=== PATIENT | female | born 1945 | race Caucasian/White ===

== ENCOUNTER 2021-09-01 08:18 | Observation (INO) | payer MEDICARE, MEDICAID ==
[~2021-09-01] VITALS: Ht 175.3 cm; Wt 47.0 kg
[2021-09-01] VITALS (8 sets, daily range): BP systolic 82–125; BP diastolic 40–62
--- NOTE | 2021-09-01 08:39 | NUR ---
PT TO ER PER EMS WITH COMPLAINT OF GENERALIZED NECK AND BACK PAIN FROM ONGOING CHRONIC YEARS AGO.
[2021-09-01] MEDS ORDERED: PREGABALIN50 MG PO (08:41)
[2021-09-01] MEDS ORDERED: CLONAZEPAM1 MG PO (08:42)
[2021-09-01] MEDS ORDERED: MORPHINE SUL30 M3 PO (08:42)
[2021-09-01] MEDS ORDERED: QUETIAPINE FUM100 MG PO (08:42)
[2021-09-01] MEDS ORDERED: HYDROCODONE BIT10 MG PO (08:43)
[2021-09-01] MEDS ORDERED: DIGOXIN0.125 MG PO (08:44)
[2021-09-01] MEDS ORDERED: ASPIRIN 81 LOW81 MG PO (08:44)
[2021-09-01 09:26] LABS: URINE BLOOD DIPSTICK NEGATIVE (NEGATIVE); URINE COLOR YELLOW; URINE GLUCOSE - DIPSTICK NEGATIVE (NEGATIVE); URINE KETONE TRACE mg/dL (NEGATIVE); URINE LEUK ESTERASE TRACE (NEGATIVE); URINE PH 6.5 (4.5-8.0); URINE PROTEIN - DIPSTICK TRACE mg/dL (NEG-TRACE)
[2021-09-01 09:28] LABS: URINE BILIRUBIN - DIPSTICK SMALL (NEGATIVE); URINE NITRITE - DIPSTICK NEGATIVE (Negative)
[2021-09-01 09:47] LABS: HEMATOCRIT 38.7 % (37.0-47.0); HEMOGLOBIN 12.1 g/dl (12.0-16.0); IMMATURE GRANULOCYTES 0.3 % (0.0-5.0); MEAN CELL VOLUME 87.6 fL CALC (80.0-100.0); MEAN CORPUSCULAR HGB 27.4 pG CALC (26.0-32.0); MEAN CORPUSCULAR HGB CONC 31.3 g/dL CAL (32.0-36.0); NEUT# 1.95 thou/uL (2.00-7.15); RED BLOOD COUNT 4.42 mill/uL (4.20-5.60); RED CELL DISTRI WIDTH 17.8 % (11.5-15.5)
--- NOTE | 2021-09-01 09:51 | NUR ---
RECEIVED REPORT FROM SANTA MURCIA
[2021-09-01 09:59] LABS: ALBUMIN 2.3 g/dL (3.2-5.0); ALKALINE PHOSPHATASE 80 u/l (38-126); ANION GAP 7 (6-22 (CALC)); BILIRUBIN, TOTAL 1.1 mg/dL (0.0-1.4); BUN 16 mg/dL (8-23); BUN/CREATININE RATIO 16 (12-20 (CALC)); CARBON DIOXIDE 29 mmol/l (22-30); CHLORIDE 107 mmol/l (95-108); GFR 54 ML/MIN (>=60 (CALC)); GFR FOR AFR.AMER. > 60 ML/MIN (>=60 (CALC)); POTASSIUM 3.8 mmol/l (3.5-5.1); SGOT/AST 42 u/l (9-36); SODIUM 139 mmol/l (137-146); TOTAL PROTEIN 6.2 g/dL (6.3-8.2)
--- NOTE | 2021-09-01 10:35 | NUR ---
DR REECE IN WITH PT TO DISCUSS POC
--- NOTE | 2021-09-01 11:01 | NUR ---
UNSUCCESSFUL PIV ATTEMPT. DR CHEVY LATIF.
--- NOTE | 2021-09-01 12:05 | NUR ---
PT LEAVES DEPT TO HAVE PICC LINE PLACED.
--- NOTE | 2021-09-01 13:05 | NUR ---
PT AWARE OF POC AND TO BE ADMITTED TO MED/SURG. PT AWARE OF LAB RESULTS. PT STABLE AT THIS TIME.
--- NOTE | 2021-09-01 13:27 | NUR ---
CALL PLACED TO MED/SURG FOR SBAR REPORT-UNABLE TO RECEIVE AT THIS TIME.
--- NOTE | 2021-09-01 14:14 | NUR ---
PT ASSISTED ON AND OFF BED RIVERA. PT WITH APPROX 250ML STRAW COLORED URINE OUT. PT TOLERATED WELL.
--- NOTE | 2021-09-01 14:25 | NUR ---
SKYRN CALLED, SBAR REPORT GIVEN. PT TO GO TO ROOM 262
--- NOTE | 2021-09-01 14:35 | NUR ---
PT TAKEN BY STRETCHER WITH TELE IN PLACE TO MED/SURG IN STABLE CONDITION.
--- NOTE | 2021-09-01 16:23 | NUR ---
REPORT RECEIVED FROM BELEM IN ED, PT ARIVED ON UNIT @ 1500 VIA STRETCHER AND TRANSFERRED TO BED, ALERT AND ORIENTED, ORIENTED TO ROOM AND CALL CHATMAN, IVF INFUSING, TELE MONITOR IN PLACE, BED ALARM ON, NO C/O PAIN AT THIS TIME, WILL CONTINUE TO MONITOR.
--- NOTE | 2021-09-01 20:15 | NUR ---
phone call rec from Dr Dickson; pt to be transfered to ICU for closer monitoring due to post procedure pneumo
--- NOTE | 2021-09-01 21:23 | NUR ---
report given to andre crews
--- NOTE | 2021-09-01 21:42 | NUR ---
rec'd from medsurg per bed to icu7. sao2 90-91%. denies resp distress. o2 began @ 2 l/m per nc. so2 98%. goggles assembler shows sinus rhythm hr 80. picc line in place jeff. bed alarm on. fall & contact precautions cont.
[2021-09-02] VITALS (12 sets, daily range): BP systolic 90–128; BP diastolic 42–65
--- NOTE | 2021-09-02 00:01 | NUR ---
eyes closed. no distress. o2 cont.
--- NOTE | 2021-09-02 02:00 | NUR ---
resting quietly. resps even & unlabored. o2 cont. thermocouple tester shows paced rhythm pvcs.
--- NOTE | 2021-09-02 04:00 | NUR ---
blood drawn & sent to lab. picc line dsg bloody-changed. incont of urine-cleansed & changed. diaper applied.
[2021-09-02 04:27] LABS: MEAN CELL VOLUME 84.8 fL CALC (80.0-100.0); MEAN CORPUSCULAR HGB 27.7 pG CALC (26.0-32.0); MEAN CORPUSCULAR HGB CONC 32.7 g/dL CAL (32.0-36.0); RED BLOOD COUNT 3.61 mill/uL (4.20-5.60); RED CELL DISTRI WIDTH 17.3 % (11.5-15.5)
[2021-09-02 04:36] LABS: HEMATOCRIT 30.6 % (37.0-47.0)
[2021-09-02 04:47] LABS: CREATININE 1.1 mg/dL (0.5-1.0); MAGNESIUM 1.5 mg/dL (1.6-2.3); POTASSIUM 3.6 mmol/l (3.5-5.1)
--- NOTE | 2021-09-02 05:05 | NUR ---
xray here. pcxr obtained.
--- NOTE | 2021-09-02 05:10 | NUR ---
lab called this freelance copywriter. glucose 37. 1 amp dextrose given.
--- NOTE | 2021-09-02 06:10 | NUR ---
accucheck 139.
--- NOTE | 2021-09-02 08:50 | NUR ---
DR. PAUL IN TO SEE PT; PLAN OF CARE DISCUSSED;
--- NOTE | 2021-09-02 14:26 | NUR ---
PORTABLE CHEST X-RAY COMPLETED AT THE BEDSIDE; PT TOLERATED WELL
--- NOTE | 2021-09-02 15:43 | NUR ---
PT RESTING WITH EYES CLOSED; NO S/SX OF DISTRESS NOTED; CALL CHATMAN WITHIN REACH; WILL CONTINUE TO MONITOR.
--- NOTE | 2021-09-02 18:06 | NUR ---
pt refused all meals and drink today; ivf infusing in GERARD PICC line without difficulty; incontinent of large amount of urine; rena care provided and pt. repositioned in bed; call mooney within reach; will continue to monitor.
--- NOTE | 2021-09-02 19:50 | NUR ---
awakens easily. no resp distress. o2 cont per nc. cardiac surgeon shows paced rhythm. picc line jeff. d5ns w 40kcl infusing @ 100cchr. slight sip of water taken. has not voided. requires MUCH encouragement to assist with care as pt does NOTHING for herself. requested this rewriter to hand her a cup of water. request denied. instructed pt to pick her glass of water up. fall & contact precautions cont.
--- NOTE | 2021-09-02 22:00 | NUR ---
eyes closed. no distress. o2 cont.
[2021-09-03] VITALS (10 sets, daily range): BP systolic 101–131; BP diastolic 42–61
--- NOTE | 2021-09-03 00:01 | NUR ---
eyes closed. no distress. ivf infusing well.
--- NOTE | 2021-09-03 02:00 | NUR ---
pt is awake. asked cafeteria attendant "can i pee in the bed?" cafeteria attendant told pt no then assisted her to bsc. voided well & had HUGE bm then assisted back to bed.
--- NOTE | 2021-09-03 04:00 | NUR ---
eyes closed. no distress. cardiac cath lab radiology technologist shows paced/sinus rhythm.
--- NOTE | 2021-09-03 05:00 | NUR ---
xray here. pcxr obtained.
--- NOTE | 2021-09-03 05:43 | NUR ---
blood drawn per chad sosa & sent to lab.
[2021-09-03 06:00] LABS: HEMATOCRIT 30.6 % (37.0-47.0); HEMOGLOBIN 9.9 g/dl (12.0-16.0); MEAN CELL VOLUME 85.5 fL CALC (80.0-100.0); MEAN CORPUSCULAR HGB 27.7 pG CALC (26.0-32.0); MEAN CORPUSCULAR HGB CONC 32.4 g/dL CAL (32.0-36.0); RED BLOOD COUNT 3.58 mill/uL (4.20-5.60); RED CELL DISTRI WIDTH 17.5 % (11.5-15.5)
[2021-09-03 06:18] LABS: ANION GAP 3 (6-22 (CALC)); BUN 15 mg/dL (8-23); BUN/CREATININE RATIO 16 (12-20 (CALC)); CARBON DIOXIDE 30 mmol/l (22-30); CHLORIDE 112 mmol/l (95-108); GFR 54 ML/MIN (>=60 (CALC)); GFR FOR AFR.AMER. > 60 ML/MIN (>=60 (CALC)); MAGNESIUM 1.6 mg/dL (1.6-2.3); SODIUM 141 mmol/l (137-146)
--- NOTE | 2021-09-03 07:10 | NUR ---
pt resting in bed with head covered with linens; no apparent distress noted; pt assesment completed at this time; pt alert to person and place; offers no complaints; resp even and unlabored; lungs clear/ diminished right young; skin color pale; ra at this time; hr reg; strong pulses; no edema noted; sr/paced on monitor; abd soft with bs present; no bm noted per science writer; no urine to inspect at this time; SL PICC patent to jeff; ivf infusing without complication; no redness or edema noted at site; bruising noted to bue; plan of care/ am meds explained; pt offered ensure with refusal; call light within reach; will continue to monitor
--- NOTE | 2021-09-03 08:00 | NUR ---
resting in bed with head covered; iv intact; sr/paced on monitor; will continue to monitor
--- NOTE | 2021-09-03 09:11 | NUR ---
Dr Dickson present at bedside to assess pt and discuss plan of care
--- NOTE | 2021-09-03 10:00 | NUR ---
paced/pvc on monitor; no distress noted; will continue to monitor
--- NOTE | 2021-09-03 12:10 | NUR ---
pt resting in bed with head covered; easily aroused; pt offers no complaints; iv intact and patent; paced/pvc on monitor; refused lunch; ensure provided and strongly encouraged; call light within reach; will continue to monitor
--- NOTE | 2021-09-03 14:00 | NUR ---
resting with head covered; no distress noted; paced/pvc on monitor; call light within reach; will continue to monitor
--- NOTE | 2021-09-03 15:33 | NUR ---
report provided to Nabil Carrillo RN; pt to transfer to [facility] 266
--- NOTE | 2021-09-03 16:00 | NUR ---
pt resting in bed with eyes closed; no apparent distress noted; pt offers no complaints; PT at bedside; pt declined activity with PT; states "I just want to "; paced/pvc on monitor; iv intact and patent; ra; call light within reach; will continue to monitor
--- NOTE | 2021-09-03 16:15 | NUR ---
PT ARRIVED VIA BED ACCOMPANIED BY Biju CASILLAS RN AND Lui CONNOR CNA.
--- NOTE | 2021-09-03 16:15 | NUR ---
pt transferred to med surg via bed in stable condition; iv intact and patent; o2 at bedside on stand-by; belongings sent with pt; bedside update provided;
--- NOTE | 2021-09-03 19:40 | NUR ---
PT RESTING IN BED, NO SIGNS OF DISTRESS NOTED, RESP EVEN AND UNLABORED. PT ALERT AND ORIENTED X3, DISCUSSED POC, PT VERY WEAK, PICC LINE TO GERARD SL, FLUIDS INFUSING. BED ALARM FOR SAFETY, PT VOICES NO NEEDS OR COMPLAINTS AT THIS TIME, ASSISTED PT TO REPOSITION FOR COMFORT. ASSESSMENT REVIEW COMPLETED, CALL LIGHT IN REACH,CONTINUE TO MONITOR.
--- NOTE | 2021-09-03 20:50 | NUR ---
PT C/O 03/22 GENERALIZED PAIN, PT MEDICATED PER OCT, CALL LIGHT IN REACH,CONTINUE TO MONITOR.
--- NOTE | 2021-09-03 22:12 | NUR ---
PT HAD A BM, CNAS PROVIDED PERICARE, PT STILL C/O PAIN, PT MEDICATED WITH TYLENOL. CALL LIGHT IN REACH,CONTINUE TO MONITOR.
[2021-09-04] VITALS: BP 110/53
--- NOTE | 2021-09-04 | NUR ---
PT RESTING IN BED, PT HAD ANOTHER BM, PERICARE COMPLETED, PT VOICES NO NEEDS OR COMPLAINTS AT THIS TIME, CALL LIGHT IN REACH,CONTINUE TO MONITOR.
--- NOTE | 2021-09-04 04:00 | NUR ---
PT HAD ANOTHER LOOSE STOOL, PERICARE COMPLETED, BARRIER CREAM APPLIED, ATTEMPTED TO DRAW LABS FROM PICC LINE BUT NO BLOOD RETURN, COMMUNITY RELATIONS ASSISTANT NOTIFIED. CALL LIGHT IN REACH, CONTINUE TO MONITOR.
[2021-09-04 04:12] VITALS: BP 127/59
[2021-09-04 05:24] LABS: HEMATOCRIT 32.7 % (37.0-47.0); HEMOGLOBIN 10.1 g/dl (12.0-16.0); MEAN CELL VOLUME 89.6 fL CALC (80.0-100.0); MEAN CORPUSCULAR HGB 27.7 pG CALC (26.0-32.0); MEAN CORPUSCULAR HGB CONC 30.9 g/dL CAL (32.0-36.0); RED BLOOD COUNT 3.65 mill/uL (4.20-5.60); RED CELL DISTRI WIDTH 18.1 % (11.5-15.5)
[2021-09-04 05:43] LABS: ANION GAP 6 (6-22 (CALC)); BUN 10 mg/dL (8-23); BUN/CREATININE RATIO 14 (12-20 (CALC)); CARBON DIOXIDE 26 mmol/l (22-30); CHLORIDE 118 mmol/l (95-108); CREATININE 0.7 mg/dL (0.5-1.0); GFR > 60 ML/MIN (>=60 (CALC)); GFR FOR AFR.AMER. > 60 ML/MIN (>=60 (CALC)); MAGNESIUM 1.6 mg/dL (1.6-2.3); POTASSIUM 4.3 mmol/l (3.5-5.1); SODIUM 145 mmol/l (137-146)
--- NOTE | 2021-09-04 06:01 | NUR ---
PT HAD ANOTHER SMALL BM, VICTOR MANUEL CARE COMPLETED, CALL LIGHT IN REACH,CONTINUE TO MONITOR.
[2021-09-04 07:30] VITALS: BP 132/59
[2021-09-04 11:12] VITALS: BP 122/60
[2021-09-04 15:05] VITALS: BP 134/68
--- NOTE | 2021-09-04 18:43 | NUR ---
ASSISTED TO BEDSIDE COMMODE VOIDED APPROXIMATELY 2OOCC OF HAZY YELLOW URINE. COMPLAIN OF EPIGASTRIC DISCOMFORT CRAMPING AND "HEARTBURN DISCOMFORT. APETITE POOR ONLY TOOK FEW BITES OF SUPPER. DENIES NAUSEA
--- NOTE | 2021-09-04 19:00 | NUR ---
REPORT RECEIVED FROM Gold LE RN, CARE OF PT ASSUMED QT THIS TIME.
[2021-09-04 20:04] VITALS: BP 131/64
--- NOTE | 2021-09-04 20:10 | NUR ---
PT AWAKE, LAYING IN BED, NO APPARENT DISTRESS, APPEARS COMFORTABLE. ASSISTED UP TO BSC TO VOID AND BACK TO BED. WARM BLANKET PROVIDED REQUESTED. DENIES FURTHER NEEDS AT THIS TIME. FALL PREVENTION/SAFETY REVIEWED. PT VERBALIZES UNDERSTANDING. CALL CHATMAN WITHIN REACH, AGREES TO CALL PRN.
[2021-09-05 00:33] VITALS: BP 133/65
--- NOTE | 2021-09-05 01:41 | NUR ---
PT C/O STABBING EPIGASTRIC PAIN. 05/22. REPORTS SIMILIAR TO EARLIER PAIN. PT PREVIOUSLY FELT RELIEF WITH HYDROCODONE. HYDROCODONE ADMINISTERED, SEE E-MAR. WARM BLANKET PROVIDED PER PT'S REQUEST.
[2021-09-05 05:15] VITALS: BP 135/69
[2021-09-05 05:45] LABS: HEMATOCRIT 29.4 % (37.0-47.0); HEMOGLOBIN 9.3 g/dl (12.0-16.0); MEAN CORPUSCULAR HGB 27.8 pG CALC (26.0-32.0); MEAN CORPUSCULAR HGB CONC 31.6 g/dL CAL (32.0-36.0); RED BLOOD COUNT 3.34 mill/uL (4.20-5.60); RED CELL DISTRI WIDTH 18.5 % (11.5-15.5)
[2021-09-05 06:02] LABS: ANION GAP 3 (6-22 (CALC)); BUN 5 mg/dL (8-23); BUN/CREATININE RATIO 8 (12-20 (CALC)); CARBON DIOXIDE 25 mmol/l (22-30); CHLORIDE 118 mmol/l (95-108); CREATININE 0.7 mg/dL (0.5-1.0); GFR > 60 ML/MIN (>=60 (CALC)); GFR FOR AFR.AMER. > 60 ML/MIN (>=60 (CALC)); MAGNESIUM 1.5 mg/dL (1.6-2.3); POTASSIUM 3.9 mmol/l (3.5-5.1); SODIUM 141 mmol/l (137-146)
[2021-09-05 07:15] VITALS: BP 132/70
--- NOTE | 2021-09-05 07:15 | NUR ---
PATIENT LAYING IN BED AT THIS TIME DENIES ANY PAIN AT THIS TIME LUNG SOUNDS ARE DIMINISHED ASSISTED TO BEDSIDE COMMODE VOIDED AND ASSITED BACK TO BED. EPIC WILLOW SPECIALIST DONE AT THIS TIME. TELE MONIOTOR ON AT THIS TIME AND BEING MONITORED BY ED. PATIENT C/O PAIN IN ABDOMINAL AREA AND 4MG OF ZOFRAN GIVEN AT THIS TIME. SIDERAIL ARE UP X 2 CALL LIGHT WITHIN REACH.
[2021-09-05 10:45] VITALS: BP 149/89
--- NOTE | 2021-09-05 11:06 | NUR ---
PATIENT RESTING IN BED AT THIS TIME. PATINET IS ON CAMERA AND BED ALARM ENGAGED. PATIENT DENIES ANY NEEDS AND IS ON ROOM AIR AT THIS TIME. AND SPO2 IS 99%. SIDERAILS ARE UP CALL LIGHT IS WITHIN REACH TELE MONITOR IN PLACE WILL CONTINUE TO MONIOTOR.
--- NOTE | 2021-09-05 12:25 | NUR ---
S- pt c/o being cold and stomach hurting. 0- pt resting in bed. She rolled side to side with use of bed rail, modified indep. She needed mod assist to sit over edge of bed. She voiced concerns over her feet getting bumped, toenails overgrown. Transfer to chair and a second stand with CGA. BP 149/89, HR 75- 87, 02 sats 94-98% Pt left in chair with legs elevated call mooney in her lap. Nursing aware. Pt reported having hosp bed at home. A- [facility] 10 ECF P- will follow per POC.
[2021-09-05 16:26] VITALS: BP 150/72
--- NOTE | 2021-09-05 16:51 | NUR ---
PATIENT RESTING IN BED AT THIS TIME. DENIES ANY NEEDS CURRENTLY SIDERAILS ARE UP CALL LIGHT WIIN REACH TELE MONITOR ON AND IN PLACE AND BEING MONITORED BY ED. WILL CONTINUE TO MONITOR.
[2021-09-05 19:00] VITALS: BP 129/65
--- NOTE | 2021-09-05 19:30 | NUR ---
PATIENT RESTING IN BED AT THIS TIME WITH O2 VIA NASAL CANNULA IN PLACE. AWAKE ALERT AND ORIENTEDX3. PATIENT WITH C/O SEVERE ABD AND BACK PAIN 8/10 ON P AIN SCALE. MEDICATED WITH LORTAB 10/325MG PO FOR PAIN. TELE MONITOR IN PLACE-LAST READING-PACED IN THE 70'S. IVF D5NS PATENT AND INFUSING VIA RAC MIDLINE AT 75CC/HR. SITE APPEARS HEALTHY AT THIS TIME. LUNGS ARE DIMINISHED THROUGHOUT. ABD IS SOFT WITH ACTIVE BS. PATIENT STATES THAT SHE IS HAVING LOOSE STOOLS-INSTRUCTED PATIENT THAT WE DO NEED STOOL SPEC IF SHE IS ABLE TO PROVIDE. PATIENT ASSISTED OOB TO THE BSC TO VOID SMALL AMT OF CLEAR YELLOW URINE AND THEN BACK TO BED. PATIENT HAS SOME EXTREMELY LONG AND UNKEMPT TOE NAILS ON BOTH FEET THAT NEED SOME ATTENTION. SAFETY PRECAUTIONS REINFORCED. CALL LIGHT IN REACH. WILL CONT TO MONITOR.
--- NOTE | 2021-09-05 19:30 | NUR ---
PATIENT RESTING IN BED AT THIS TIME WITH O2 VIA NASAL CANNULA IN PLACE-O2 SAT IS 98%. AWAKE, ALERT AND ORIENTEDX2. PATIENT WITH C/O SEVERE ABD AND CHRONIC BACK PAIN-8/10 ON PAIN SCALE. MEDICATED WITH LORTAB 10/325MG PO FOR PAIN. TELE MONITOR IN PLACE-LAST READING PACED IN THE 70'S. IVF D5NS PATENT AND INFUSING VIA RAC MIDLINE AT 75CC/HR. SITE APPEARS HEALTHY AT THIS TIME. LUNGS ARE DIMINIISHED THROUGHOUT.ABD SOFT WITH ACTIVE BS. PATIENT STATES THAT SHE IS HAVING LOOSE STOOLS-INSTRUCTED PATIENT THAT WE DO NEED STOOL SPEC IF SHE IS ABLE TO PROVIDE. PATIENT ASSISTED TO THE BSC TO VOID SMALL AMT OF CLEAR YELLOW URINE AND THEN BACK TO BED. PATIENT HAS SOME EXTREMELY LONG UNKEMPT TOE NAILS ON BOTH FEET THAT NEED SOME ATTENTION. SAFETY PRECAUTIONSREINFORCED. BED ALARM IN PLACE FOR PATIENT SAFETY. CALL LIGHT IN REACH. WILL CONT TO MONITOR.
[2021-09-06] VITALS (7 sets, daily range): BP systolic 113–148; BP diastolic 59–84
--- NOTE | 2021-09-06 | NUR ---
PATIENT RESTING IN BED AT THIS TIME WITH O2 VIA NASAL CANNULA IN PLACE. EYES ARE CLOSED AND RESPS ARE EVEN AND UNLABORED. TELE MONITOR IN PLACE. IVF PATENT AND INFUSING VIA RAC SITE. BED ALARM IN PLACE FOR PAITENT SAFETY. CALL LIGHT IN REACH. WILL CONT TO MONITOR.
[2021-09-06 06:07] LABS: HEMATOCRIT 29.1 % (37.0-47.0); HEMOGLOBIN 9.5 g/dl (12.0-16.0); MEAN CELL VOLUME 85.1 fL CALC (80.0-100.0); MEAN CORPUSCULAR HGB 27.8 pG CALC (26.0-32.0); MEAN CORPUSCULAR HGB CONC 32.6 g/dL CAL (32.0-36.0); NEUT# 0.65 thou/uL (2.00-7.15); RED BLOOD COUNT 3.42 mill/uL (4.20-5.60); RED CELL DISTRI WIDTH 17.9 % (11.5-15.5)
[2021-09-06 06:37] LABS: ALKALINE PHOSPHATASE 69 u/l (38-126); ANION GAP 4 (6-22 (CALC)); BUN 5 mg/dL (8-23); BUN/CREATININE RATIO 6 (12-20 (CALC)); C-REACTIVE PROTEIN 2.5 mg/dL (0-0.9); CARBON DIOXIDE 24 mmol/l (22-30); CHLORIDE 117 mmol/l (95-108); CREATININE 0.8 mg/dL (0.5-1.0); GFR > 60 ML/MIN (>=60 (CALC)); GFR FOR AFR.AMER. > 60 ML/MIN (>=60 (CALC)); POTASSIUM 3.7 mmol/l (3.5-5.1); SGOT/AST 23 u/l (9-36); SODIUM 141 mmol/l (137-146)
[2021-09-06 06:50] LABS: ALBUMIN 1.7 g/dL (3.2-5.0); BILIRUBIN, TOTAL 0.4 mg/dL (0.0-1.4)
--- NOTE | 2021-09-06 07:00 | NUR ---
PATIENT RESTING IN BED AT THIS TIME. MUD CLEANER OPERATOR DONE SEE INTERVENTIONS. PATIENT O2 ON AT 2 LITER AND IS SPO2 99% AT THIS TIME. LUNG SOUNDS REMAIN UNCHANGED AND DIMINISHED. SIDERAILS ARE UP CALL LIGHT WITHIN REACH. TELE MONITOR ON AND MONITORING BY ED. WILL CONTINUE TO MONIOR.
--- NOTE | 2021-09-06 11:09 | NUR ---
PATIENT RESTING IN BED AT THIS TIME. DENEINS ANY NEEDS AT THIS TIME WAS GIVEN IV PROTONIX AT THIS TIME. SIDERAILS ARE UP CALL LIGHT WITHIN REACH. WILL CONTINUE TO MONITOR.
--- NOTE | 2021-09-06 12:04 | NUR ---
S- pt c/o nausea and stomach pain (MD notified) 0- She was resting in bed, response appropriately to questions. AROM ex performed to BLEs in supine including heelslide, hip abd/add, SAQ and ankle dorsiflexion. Gentle heel cord stretches done x 3 reps to B ankles. Pt moved rolled with bed rails, modified indep, supine to and from sit with min assist. Pt stood x 1 and took 3-4 steps with min/mod assist, she reported fear of falling and increase abdominal discomfort and refused further intervention. Pt left in bed with call mooney/bedside tray in reach. in with pt. BP 144/77, HR in mid 70s and 02sat 97% on RA when entering room (02 placed on pt in sitting with sats 92% after standing and walking several steps. Time spent with pt 35 min. A- [facility] 11 ECF P- Will follow.
--- NOTE | 2021-09-06 15:49 | NUR ---
PATIENT RESTING IN BED AT THIS TIME. PATIENT STATED HER STOMACH PAIN IS NOW A 2 AND THE ZOFRAN DID HELP. SIDERAILS ARE UP CALL LIGHT IS WITHIN REACH. TELE MONITOR IN PLACE AND BEING MONITORED BY ED.
--- NOTE | 2021-09-06 18:14 | NUR ---
ED CALLED (OSCAR) TO REPORT THAT PATIENT HAD A RUN OF 38 BEATS OF V-TACH. VENKATA ASSESSED AT THIS TIME VS. T. 99.1 P. 77 R. 18 BP 145/83. PATIENT LYING IN BED AT THIS TIME. RESPIRATORY CALLED TO DO STAT EKG AT THIS TIME. DR. ESCOTO CALLED AND ORDERS GIVEN.
--- NOTE | 2021-09-06 19:45 | NUR ---
PATIENT RESTING IN BED WATCHING TV. ALERT AND ORIENTED. PLEASANT. ABLE TO MAKE NEEDS KNOWN. ASSESSMENT COMPLETE. VERBALIZED TO PATIENT WHAT MEDICATIONS SHE WAS RECEIVING TONIGHT. NO COMPLAINTS OF PAIN VOICED. NO SIGNS OF DISTRESS NOTED. CALL LIGHT AND BELONGINGS REMAIN IN REACH.
--- NOTE | 2021-09-06 23:30 | NUR ---
PATIENT RESTING IN BED. DENIES ANY PAIN OR DISCOMFORT. NO SIGNS OF DISTRESS NOTED. PATIENT TENDS TO TAKE OFF HER OXYGEN. REMINDED PATIENT THE IMPORTANCE OF LEAVING IT ON. CALL LIGHT AND BELONGINGS REMAIN IN REACH.
[2021-09-07] VITALS: BP 142/67
[2021-09-07 04:00] VITALS: BP 123/58
--- NOTE | 2021-09-07 04:05 | NUR ---
PATIENT RESTING IN BED. ASKED FOR AIR IN ROOM TO BE TURNED DOWN SOME DUE TO IT FEELING TOO WARM TO HER. NO SIGNS OF DISTRESS NOTED. NO COMPLAINTS OF PAIN VOICED. CALL LIGHT AND BELONGINGS REMAIN IN REACH.
[2021-09-07 05:42] LABS: HEMOGLOBIN 9.7 g/dl (12.0-16.0); MEAN CELL VOLUME 85.7 fL CALC (80.0-100.0); MEAN CORPUSCULAR HGB 27.7 pG CALC (26.0-32.0); MEAN CORPUSCULAR HGB CONC 32.3 g/dL CAL (32.0-36.0); NEUT# 0.9 thou/uL (2.00-7.15); RED BLOOD COUNT 3.5 mill/uL (4.20-5.60); RED CELL DISTRI WIDTH 17.8 % (11.5-15.5)
[2021-09-07 06:10] LABS: ALBUMIN 1.7 g/dL (3.2-5.0); ALKALINE PHOSPHATASE 78 u/l (38-126); ANION GAP 4 (6-22 (CALC)); BILIRUBIN, TOTAL 0.4 mg/dL (0.0-1.4); BUN 6 mg/dL (8-23); BUN/CREATININE RATIO 7 (12-20 (CALC)); CARBON DIOXIDE 23 mmol/l (22-30); CHLORIDE 118 mmol/l (95-108); CREATININE 0.8 mg/dL (0.5-1.0); GFR > 60 ML/MIN (>=60 (CALC)); GFR FOR AFR.AMER. > 60 ML/MIN (>=60 (CALC)); POTASSIUM 4.4 mmol/l (3.5-5.1); SGOT/AST 26 u/l (9-36); SODIUM 140 mmol/l (137-146); TOTAL PROTEIN 5.1 g/dL (6.3-8.2)
[2021-09-07 06:15] LABS: MAGNESIUM 2.2 mg/dL (1.6-2.3)
[2021-09-07 07:51] VITALS: BP 134/75
--- NOTE | 2021-09-07 09:00 | NUR ---
PT SLEEPING IN BED. AWAKEN TO CHECK VS. SHALLOW RESPIRATIONS; DIMINISHED LUNG SOUNDS IN UPPER AND LOWER LOBES. O2 IN PLACE @2L; 100% . PT HAS A NONPRODUCTIVE COUGH. PT C/O GENERALIZED PAIN 03/22 AND WAS MEDICATED. NO DISTRESS NOTED. PT REQUESTED APPLESAUCE TO FACILITATE MEDICATION SWALLOWING. CALL LIGHT WITHIN REACH.
[2021-09-07 11:03] VITALS: BP 129/68
--- NOTE | 2021-09-07 13:26 | NUR ---
S- Pt c/o some nausea and abdominal discomfort still, nursing had medicated her recently. 0- Pt in bed supine, she rolled side to side with modified indep using bed rail, supine to sit with CGA. Pt stood from bed and ambulated x 15' with RW and CGA/min assist, [address], gait belt and non skid socks on. LE AROM ex performed in supine. Pt refused a second walk. BP 139/58 to 138/65, HR 71 to 90 Time spent with pt 40 min. Pt left in chair with call mooney and tray in reach. pt requesting something to eat and nursing aware. A- [facility] 13 ECF or home with home health and family. P- will follow.
--- NOTE | 2021-09-07 13:45 | NUR ---
PT IN BED, C/O NAUSEA; RECEIVED MED TO HELP WITH NAUSEA. PT WAS REPOSITION IN BED. NO DISTRESS NOTED. CALL LIGHT WITHIN REACH.
[2021-09-07 15:08] VITALS: BP 138/69
--- NOTE | 2021-09-07 16:56 | NUR ---
PT IN BED. PT C/O GENERALIZED PAIN 02/19; PT WAS MEDICATED, WILL REASSESS. HELPED WITH REPOSITION. CALL LIGHT WITHIN REACH.
[2021-09-07 19:00] VITALS: BP 124/75
[2021-09-08] VITALS (7 sets, daily range): BP systolic 116–137; BP diastolic 54–75
[2021-09-08 05:08] LABS: HEMOGLOBIN 8.7 g/dl (12.0-16.0); IMMATURE GRANULOCYTES 0.3 % (0.0-5.0); MEAN CORPUSCULAR HGB 27.7 pG CALC (26.0-32.0); MEAN CORPUSCULAR HGB CONC 32.2 g/dL CAL (32.0-36.0); NEUT# 0.84 thou/uL (2.00-7.15); RED BLOOD COUNT 3.14 mill/uL (4.20-5.60); RED CELL DISTRI WIDTH 17.7 % (11.5-15.5)
[2021-09-08 05:37] LABS: ALBUMIN 1.5 g/dL (3.2-5.0); ALKALINE PHOSPHATASE 74 u/l (38-126); ANION GAP 2 (6-22 (CALC)); BILIRUBIN, TOTAL 0.3 mg/dL (0.0-1.4); BUN 6 mg/dL (8-23); BUN/CREATININE RATIO 8 (12-20 (CALC)); CARBON DIOXIDE 26 mmol/l (22-30); CHLORIDE 117 mmol/l (95-108); CREATININE 0.8 mg/dL (0.5-1.0); GFR > 60 ML/MIN (>=60 (CALC)); GFR FOR AFR.AMER. > 60 ML/MIN (>=60 (CALC)); SGOT/AST 20 u/l (9-36); SODIUM 140 mmol/l (137-146); TOTAL PROTEIN 4.7 g/dL (6.3-8.2)
--- NOTE | 2021-09-08 10:28 | NUR ---
ALERT AND ORIENTED PATIENT X3. RESPIRATORY DISTRESS IS NOT OBSERVED AT THIS TIME. EDUCATED ON MEDICATION, NURSING PLAN AND CLINICAL PLAN FOR TODAY. pATIENT REFER UNDERSTAND. MEDICATIONS IS ADMINISTERD ACCORDING TO MAR. PATIENT STABLE AT THIS TIME NOT REPORT PAIN. PREVENTIVE ROUDSEVERY HOUR FOR FALL PREVENTION AND PATIENT SATISFACTION.
--- NOTE | 2021-09-08 14:11 | NUR ---
S- Pt continues to report stomach pain and nausea. 0- pt resting in bed. She performed AROM ex to BLEs in supine 2 x 10 reps includeing heel slides, hip abd/add, SAQ, ankle DF/PF and clam shells. Supine to sit with min assist and bed rail use. Sitting balance static was F+. Gait with RW 1x15' and 1 x 20' with CGA/min assist due to visual deficits. Non skid socks and gait belt used with mobility. Pt BP 130/65 to 142/69, HR 81-94 02 sats 99-100%. Pt left in chair with call mooney/tray and phone in reach. Time spent with pt 40 min. A- [facility] 13 ECF or home with home health and family. Pt with increase ambulation today. P- Will follow.
--- NOTE | 2021-09-08 16:33 | NUR ---
Pt c/o of stomach ache.. Requesting medication, does not want to brush gums, eat, or complete other self care tasks, stating her CERAMIC CHEMIST already assted her. AM-PAC 11, d/c to [facility]
--- NOTE | 2021-09-08 19:00 | NUR ---
RECIEVED REPORT FROM SANTA KANG
--- NOTE | 2021-09-08 19:43 | NUR ---
PT RESTING IN SEMI FOWLERS POSITION. PT IS A/OX3. ASSESSMENT COMPLETED. RESPIRATIONS ARE EVEN AND UNLABORED ON 3L NC. LUNG SOUNDS ARE DIMINISHED IN RIGHT LOBES. HEART RHYTHM NORMAL WITH TELE IN PLACE, PACE PER ER MONITORING. BOWEL SOUNDS ACTIVE. GERARD SINGLE LUMEN PICC REMAINS INFUSING WITH IVF PER ORDER, SITE REMAINS HEALTHY AND PATENT. SKIN INTACT. SCATTERED BRUSING NOTED THROUGHOUT BODY. OLD PRESSURE SORE NOTED TO COCCYX. ENCOURAGED REPOSITIONING. PT C/O OF NASUEA AND ABD PAIN AT THIS TIME. PT TO BE MEDCAITED PER EMAR. PT DENIES OF ANY ADDIITONAL NEEDS. ALL SAFTEY PRECAUTIONS ARE IN PLACE WITH CALL LIGHT IN REACH. WILL CONTINUE TO MONITOR
--- NOTE | 2021-09-08 23:41 | NUR ---
PT SLEEPING IN SEMI FOWLERS POSITION. REPSIRATIONS ARE EVEN AND UNLABORED ON 3L NC. TELE MONITORING IN PLACE. NO SIGNS OF ANY DIISTRESS. ALL SAFTEY PRECAUTIONS IN PLACE WITH CALL LIGHT IN REACH. WILL CONTINUE TO MONITOR
[2021-09-09] VITALS (7 sets, daily range): BP systolic 108–154; BP diastolic 62–93
--- NOTE | 2021-09-09 04:15 | NUR ---
PT SLEEPING IN SEMI FOWLERS POSITION. RESPIRATIONS ARE EVEN AND UNLABORED ON 3L NC. TELE MONITORING IN PLACE. GERARD MIDLINE REMAINS INFUSING WITH IVF PER ORDER, SITE HEALTHY AND PATENT. NO SIGNS OF ANY PAINS OR DISCOMFORTS. ALL SAFTEY AND ISOALTION PRCAUTIONS ARE IN PLACE. WILL CONTINUE TO MONITOR
--- NOTE | 2021-09-09 05:01 | NUR ---
PT MEDICATED WITH LORTAB AND ZOFRAN FOR NAUSEA AND 7/0 ABD PAIN. PT TOLERTED WELL
[2021-09-09 05:23] LABS: HEMATOCRIT 27.6 % (37.0-47.0); HEMOGLOBIN 8.7 g/dl (12.0-16.0); IMMATURE GRANULOCYTES 0.3 % (0.0-5.0); MEAN CELL VOLUME 87.3 fL CALC (80.0-100.0); MEAN CORPUSCULAR HGB 27.5 pG CALC (26.0-32.0); MEAN CORPUSCULAR HGB CONC 31.5 g/dL CAL (32.0-36.0); NEUT# 1.25 thou/uL (2.00-7.15); RED BLOOD COUNT 3.16 mill/uL (4.20-5.60); RED CELL DISTRI WIDTH 17.7 % (11.5-15.5)
[2021-09-09 05:49] LABS: ALBUMIN 1.6 g/dL (3.2-5.0); ALKALINE PHOSPHATASE 85 u/l (38-126); ANION GAP 3 (6-22 (CALC)); BILIRUBIN, TOTAL 0.3 mg/dL (0.0-1.4); BUN 8 mg/dL (8-23); BUN/CREATININE RATIO 10 (12-20 (CALC)); C-REACTIVE PROTEIN 2.5 mg/dL (0-0.9); CARBON DIOXIDE 25 mmol/l (22-30); CHLORIDE 118 mmol/l (95-108); CREATININE 0.8 mg/dL (0.5-1.0); GFR > 60 ML/MIN (>=60 (CALC)); GFR FOR AFR.AMER. > 60 ML/MIN (>=60 (CALC)); POTASSIUM 3.9 mmol/l (3.5-5.1); SGOT/AST 21 u/l (9-36); SODIUM 141 mmol/l (137-146); TOTAL PROTEIN 4.8 g/dL (6.3-8.2)
--- NOTE | 2021-09-09 14:24 | NUR ---
PATIENT ALERT AND ORIENTED X3. NO RESPIRATORY DISTRESS AT THIS TIME. ADMINISTER MEDICATIONS ACCORDING TO MAR. NICKOLAS ROBERTS EVERY HOUR.
--- NOTE | 2021-09-09 14:46 | NUR ---
S- Pt c/o 8/10 LB pain. 0- Attempted treatment this am but she had just returned to bed. This pm pt just returning from being off floor for test. She c/o back pain and refused therapy treatment. She did transfer with SBA/guidance to bed and was positioned on R side, pillow behind back and between knees. Call mooney in reach. BP was 154/93,HR 95, 02 sats 96%. A- Pt refused treatment. [facility] unchanged ECF. P- Will follow per POC.
--- NOTE | 2021-09-09 19:00 | NUR ---
RECIEVED REPORT FROM SANTA.
--- NOTE | 2021-09-09 19:47 | NUR ---
PT RESTING IN SEMI FOWLERS POSITION. PT IS A/OX3 WITH SOME CONFUSION. ASSESSMENT COMPLETED. REPSIRATIONS ARE EVEN AND UNLABORED ON 2L NC,98%. LUNG SOUNDS ARE CLEAR. HEART MURRMUR NOTED, TELE MONITORING IN PLACE. BOWEL SOUNDS ACTIVE. PULSES STRONG. GERARD MIDLINE INFUSING WITH IVF PER ORDER, SITE PATENT. OLD SCABBED OVER BED SORE TO COCCYX NOTED. ENCOURAGED REPOSITIONING. PT C/O OF 7/10 ABD AND BACK PAIN WITH NAUSEA. PT TO BE MEDICATED PER EMAR. PT DENIES OF ANY ADDITIONAL NEEDS. ALL SAFETY PRECAUTIONS ARE IN PLACE WITH CALL LIGHT IN REACH.AIR/CONTACT PRECAUTIONS. WILL CONTINUE TO MONITOR.
--- NOTE | 2021-09-09 21:35 | NUR ---
SCHEDULED MEDICATIONS DROPPED ON FLOOR. WASTED WITH SANTA FUENTES. NEW MEDICATIONS PULLED. ADMINISTERED, PT TOLERATED WELL
[2021-09-10] VITALS (8 sets, daily range): BP systolic 116–164; BP diastolic 61–81
--- NOTE | 2021-09-10 00:13 | NUR ---
PT SLEEPING IN SEMI FOWLERS POSITION. RESPIRATIONS ARE EVEN AND UNLABORED WITH NO DISTRESS ON 2L NC. GERARD MIDLINE INFUSING WITH IVF PER ORDER, SITE HEALTHY AND PATENT. TELE MONITORING IN PLACE. NO SIGNS OF ANY PAINS. ALL SAFTYE PRECAUTIONS ARE IN PLACE WITH CALL LIGHT IN REACH. WILL CONTINUE TO MONITOR
--- NOTE | 2021-09-10 03:54 | NUR ---
PT RESTING IN SEMI FOWLERS POSITION. RESPIRATIONS EVEN AND UNLABORED ON 2L NC. TELE MONITORING IN PLACE. PT C/O OF 03/22 ABD PAIN AND NAUSEA, PT MEDICATED PER EMAR. PT DENIES OF ANY ADDITIONAL NEEDS. ALL SAFTEY PRECAUTIONS ARE IN PLACE WITH CALL LIGHT IN REACH.WILL CONTINUE TO MONITOR.
--- NOTE | 2021-09-10 07:58 | NUR ---
RECEIVE REPORT FROM SHARON. PRATT. PATIENTE ALERT AND ORIENTED X3. NO DISTRESS RESPIRATORY, PAIN OR DISCONFORT AT THIS TIME. ASSESSMENT DONE. LUNGS CLEAR, BOWELS SOUNDS ACTIVE. SURGICAL DREESING CLEAN. PREVENTIVE ROUDS EVERY HOUR.
--- NOTE | 2021-09-10 08:11 | NUR ---
RECEIVE REPORT FROM DAREK. RN PATIENT ALERT AND ORIENTED X3. NO RESPIRATORY DISTRESS AT THIS TIME. PATIENT REFER PAIN. MEDICATIONS FOR PAIN AND NAUCEAS IS ADMINISTERED. ASSESSMENT IS DONE. LUGS CLEAR, BOWELS SOUND ACTIVE. ROUDS EVERY HOUR IS DONE FOR FALL PRECUTIONS AND PATIENT SATISFACTION.
[2021-09-11] VITALS (7 sets, daily range): BP systolic 111–155; BP diastolic 66–80
--- NOTE | 2021-09-11 00:07 | NUR ---
PATIENT RESTING IN BED AT THIS TIME WITH EYES CLOSED. RESPIRATIONS EASY AND UNLABORED AND O2 REMAINS IN PLACE AND TELE MONITOR IN PLACE AND BEING MONITORED BY ED. SIDERAILS ARE UP CALL LIGHT WITH IN REACH.
--- NOTE | 2021-09-11 04:10 | NUR ---
PATIENT RESTING IN BED AT THIS TIME. PATIENT DENIES ANY NEEDS. COOK MAYONNAISE CALLED UP AND STATED THAT VENKATA HEART LOANM "LOOKS LIKE IT IS A-FIB". PATIENT DENIES ANY PAIN AND OR SHORTNESS OF BREATH. SIDERAILS ARE UP CALL LIGHT WITHIN REACH.
--- NOTE | 2021-09-11 06:00 | NUR ---
ED CALLED THIS NURSE TO REPORT THAT PATIENT'S TELE IS READING A-FIB/RVR AND HEART RATE IS JUMPING TO 120'S. THIS NURSE WENT AND ASSESSED PATIENT AT THIS TIME AND PATIENT STATED SHE FEELS FINE AND DENIES ANY NEEDS. PATIENT DID STATE HER STOMACK IS STARTING TO HURT AND SHE WAS GIVEN 4MG OF ZOFRAN AT THIS TIME. RESPIRATORY CALLED TO DO A STAT EKG AT THIS TIME. WILL CONTINUE TO MONITOR.
--- NOTE | 2021-09-11 06:03 | NUR ---
ED CALLED AND STATED THAT PATIENT IS NOW AFIB AT 105 AT THIS TIME. WILL CONTINUE TO MONITOR AND WILL CALL DR. SCOTT.
--- NOTE | 2021-09-11 06:18 | NUR ---
DR. SCOTT NOTIFIED AT THIS TIME AND GIVEN INFORMATION REGARDING A-FIB RVR. INFORMED THAT EKG WAS DONE AND VITAL SIGNS ON PATIENT NO NEW ORDERS GIVEN AT THIS TIME.
--- NOTE | 2021-09-11 08:00 | NUR ---
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
--- NOTE | 2021-09-11 11:50 | NUR ---
RESTING IN BED, PAIN CONTROLLED WITH ANALGESICS, ROUNDED AND DISCUSSED PLAN OF CARE, PT STATED UNDERSTANDING, WILL CONTINUE TO MONITOR.
--- NOTE | 2021-09-11 15:39 | NUR ---
CONTINUES TO C/O BURNING SENSATION IN STOMACH, NOTHING IS RELIEVING THE BURNING ADEQUATELY, NURSE WILL CONTACT MD FOR FURTHER INTERVENTION.
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
--- NOTE | 2021-09-11 19:15 | NUR ---
PATIENT LAYING IN BED AT THIS TIME. PATIENT STATES "I HAVE PAIN IN MY STOMACH IT IS A 1 AT THIS TIME. LUNGS SOUNDS ARE CLEAR. SIDERAILS ARE UP X 2 CALL LIGHT WITHIN REACH. TELE MONITOR ON AND BEING MONITORED BY ED. SENIOR BACK END JAVA DEVELOPER DONE AT THIS TIME. WILL CONTINUE TO MONITOR.
--- NOTE | 2021-09-11 20:38 | NUR ---
1 10MG/325MG LORITAB GIVEN AT THIS TIME FOR PAIN IN ABDOMINAL AREA OF 5. PATIENT WILL BE MONITORED.
--- NOTE | 2021-09-11 21:05 | NUR ---
PATIENT STATES HER PAIN LEVEL IS A 3 AT THIS TIME. SIDERAILS ARE UP CALL LIGHT WITHIN REACH.
--- NOTE | 2021-09-11 23:54 | NUR ---
PATIENT LAYING IN BED AT THIS TIME. EYES CLOSED AND BREATHING IS NON LABORED AT THIS TIME. 02 ON AT 2 LITERS. TELE MONITOR REMAINS IN PLACE WILL CONTINUE TO MONITOR.
[2021-09-12 00:32] VITALS: BP 122/68
--- NOTE | 2021-09-12 03:30 | NUR ---
PATIENT MEDICATED AT THIS TIME WITH LORITAB 10MG/325 PO FOR PAIN IN EPIGASTRIC AREA AND STATES PAIN IS A 4 OUT OF THE PAIN SCALE OF 0-10 WILL CONTINUE TO MONITOR.
--- NOTE | 2021-09-12 04:06 | NUR ---
PATIENT RESTING IN BED STATE HER PAIN LEVEL IS DOWN TO A 2 OUT OF 0-10. SIDERAILS ARE UP CALL LIGHT WITHIN REACH TELE MONITOR ON AND CONTINUES TO BE MONITORED BY ED.
[2021-09-12 04:33] VITALS: BP 102/70
[2021-09-12 05:45] LABS: HEMATOCRIT 28.8 % (37.0-47.0); HEMOGLOBIN 9.3 g/dl (12.0-16.0); MEAN CELL VOLUME 87.3 fL CALC (80.0-100.0); MEAN CORPUSCULAR HGB 28.2 pG CALC (26.0-32.0); MEAN CORPUSCULAR HGB CONC 32.3 g/dL CAL (32.0-36.0); NEUT# 2.95 thou/uL (2.00-7.15); RED BLOOD COUNT 3.3 mill/uL (4.20-5.60); RED CELL DISTRI WIDTH 18.4 % (11.5-15.5)
[2021-09-12 06:10] LABS: ANION GAP 5 (6-22 (CALC)); BUN 13 mg/dL (8-23); BUN/CREATININE RATIO 16 (12-20 (CALC)); CARBON DIOXIDE 25 mmol/l (22-30); CHLORIDE 115 mmol/l (95-108); CREATININE 0.8 mg/dL (0.5-1.0); GFR > 60 ML/MIN (>=60 (CALC)); GFR FOR AFR.AMER. > 60 ML/MIN (>=60 (CALC)); POTASSIUM 4.2 mmol/l (3.5-5.1); SODIUM 140 mmol/l (137-146)
--- NOTE | 2021-09-12 08:00 | NUR ---
ASSESSMENT AND VITALS ALLOWED AT THIS TIME. LUNG SOUNDS ARE CLEAR UPPER/LOWER LOBES ANTERIOR. DIMINISHED POSTERIOR IN LOWER LOBES. HEART SOUNDS IRREGULAR. BOWEL SOUNDS ACTIVE. TELE MONITOR IN PLACE. CONTINOUS MONITORING BY ED. PT STATES PAIN IN THE ABDOMINAL AREA. O2 AT 2L VIA NC. PT HAS GERARD MIDLINE INFUSING IVF PER EMAR. FLUSHED WITH NO RESISTANCE. CALL LIGHT WITHIN REACH. FALL/SAFTEY PRECAUTIONS IN PLACE.
[2021-09-12 10:48] VITALS: BP 139/88
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
[2021-09-12 16:05] VITALS: BP 136/87
--- NOTE | 2021-09-12 17:05 | NUR ---
PT IS CONFUSED STATING THEY SEE THEIR FATHER. MD IS AWARE. PT IS ALERT TO PERSON AND PLACE BUT IS HAVING HALLUCINATIONS. STATES INDGESTION PAIN. MYLANATA GIVEN PER EMAR. FALL/SAFTEY PRECAUTION WITHIN REACH. CALL LIGHT WITHIN REACH. IV PATENT INFUSING IVF PER EMAR.
[2021-09-12 19:00] VITALS: BP 157/95
--- NOTE | 2021-09-12 19:08 | NUR ---
REPORT RECIVED FROM Mandy YORK RN
[2021-09-13] VITALS: BP 109/69
[2021-09-13 04:00] VITALS: BP 101/62
[2021-09-13 05:50] LABS: HEMATOCRIT 27.2 % (37.0-47.0); HEMOGLOBIN 8.7 g/dl (12.0-16.0); IMMATURE GRANULOCYTES 0.3 % (0.0-5.0); MEAN CELL VOLUME 89.2 fL CALC (80.0-100.0); MEAN CORPUSCULAR HGB 28.5 pG CALC (26.0-32.0); NEUT# 4.01 thou/uL (2.00-7.15); RED BLOOD COUNT 3.05 mill/uL (4.20-5.60); RED CELL DISTRI WIDTH 18.5 % (11.5-15.5)
[2021-09-13 06:13] LABS: ALBUMIN 1.6 g/dL (3.2-5.0); ALKALINE PHOSPHATASE 87 u/l (38-126); ANION GAP 3 (6-22 (CALC)); BILIRUBIN, TOTAL 0.3 mg/dL (0.0-1.4); BUN 15 mg/dL (8-23); BUN/CREATININE RATIO 17 (12-20 (CALC)); CARBON DIOXIDE 28 mmol/l (22-30); CHLORIDE 114 mmol/l (95-108); CREATININE 0.9 mg/dL (0.5-1.0); GFR > 60 ML/MIN (>=60 (CALC)); GFR FOR AFR.AMER. > 60 ML/MIN (>=60 (CALC)); POTASSIUM 4.5 mmol/l (3.5-5.1); SGOT/AST 26 u/l (9-36); SODIUM 140 mmol/l (137-146); TOTAL PROTEIN 4.8 g/dL (6.3-8.2)
[2021-09-13 06:34] LABS: C-REACTIVE PROTEIN 14.3 mg/dL (0-0.9)
[2021-09-13 06:39] VITALS: BP 129/69
--- NOTE | 2021-09-13 08:00 | NUR ---
PT AWAKE IN WILIAN UPON ENTERING ROOM STATES HAVING ABD PAIN OF RATE OF 6-10. PAIN MEDICATION GIVEN REFER TO EMAR. PT HAS GERARD MIDLINE INFUSING IVF PER EMAR. LUNG SOUNDS ARE CLEAR UPPER/LOWER LOBES ANTERIOR. DIMINISHED RLL AND LLL POSTERIOR. BOWEL SOUNDS ACTIVE X4. HEART SOUNDS ARE IRREGULAR. TELE MONITOR IN PLACE. CONTINOUS MONITORING BY ED. STATES NO OTHER NEEDS AT THIS TIME. FALL/SAFTEY PRECAUTIONS IN PLACE. CALL LIGHT WITHIN REACH.
--- NOTE | 2021-09-13 08:26 | NUR ---
Late entry of 09/12/21 Pt refuse treatment in pm, begging therapist to leave he alone. Nursing aware.
--- NOTE | 2021-09-13 11:54 | NUR ---
S- Pt without changes reported. 0- She was resting in bed tenorio position. She cooperated with AROM ex in bed x 10 reps each. Rolling side to side with modified indep using bed rails. Supine to sit with min/mod assist of upper body. Sitting balance F+ static. Transfer to and from chair with min assist. Gait 2x 15' with CGA and guidance secondary to decreased vision. Pt left in chair 90/90 position per her request, call mooney and bed side tray in reach. BP 154/93, HR 98 up to 135 after walking but back to 98 after resting several min. 02 sat 94-98%. 0- Pt cooperative with treatment, [facility]- will follow
[2021-09-13 14:02] VITALS: BP 132/73
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
[2021-09-13] MEDS ORDERED: PROTONIX40 M2 PO (15:31)
[2021-09-13] MEDS ORDERED: CARAFATE1 GM/10 ML PO (15:31)
[2021-09-13] MEDS ORDERED: FLORASTOR250 M1 PO (15:31)
[2021-09-13] MEDS ORDERED: CLONAZEPAM1 MG PO (15:44)
[2021-09-13] MEDS ORDERED: HYDROCODONE BIT10 MG PO (15:44)
[2021-09-13] MEDS ORDERED: MORPHINE SUL30 M3 PO (15:44)
--- NOTE | 2021-09-13 16:51 | NUR ---
Discharge instructions given. Patient verbalizes understanding of same. Discharged in stable condition via Medical Transport to [facility] with [facility] staff. All belongings sent with pt. MIDLINE REMOVED, CATHETER FULLY INTACT. REPORT CALLED TO [facility]
== END 2021-09-13 16:51 ==
LOC: ED 08:18 → ED-I 10:40 → ED 10:52 → MS2 10:53 → ICU 21:42 → MS2 09-03 16:16
PROVIDERS: Family Medicine; Internal Medicine; Nurse Practitioner; ADMIT Hospitalist; ATTEND Hospitalist
PROC: 0W993ZZ Drainage of Right Pleural Cavity, Percutaneous Approach (ICD-10-PCS; principal; 2021-09-01)
PROC: BB4BZZZ Ultrasonography of Pleura (ICD-10-PCS; 2021-09-01)
PROC: 05HB33Z Insertion of Infusion Device into Right Basilic Vein, Percutaneous Approach (ICD-10-PCS; 2021-09-01)
DX: J90 Pleural effusion, not elsewhere classified (principal); J95.811 Postprocedural pneumothorax; U07.1 COVID-19; I10 Essential (primary) hypertension; G30.9 Alzheimer's disease, unspecified; F02.80 Dementia in other diseases classified elsewhere, unspecified severity, without behavioral disturbance, psychotic disturbance, mood disturbance, and anxiety; T17.908A Unspecified foreign body in respiratory tract, part unspecified causing other injury, initial encounter; R10.84 Generalized abdominal pain; G89.29 Other chronic pain; G47.00 Insomnia, unspecified; X58.XXXA Exposure to other specified factors, initial encounter; Y84.4 Aspiration of fluid as the cause of abnormal reaction of the patient, or of later complication, without mention of misadventure at the time of the procedure; Z95.0 Presence of cardiac pacemaker; Z91.041 Radiographic dye allergy status; Z91.81 History of falling
CPT/HCPCS: G0378; J3475; S0164